=== PATIENT | male | born 1955 | race African-American/Black ===

== ENCOUNTER 2016-08-18 11:44 | Inpatient (IN) ==
[2016-08-18 13:34] LABS: Basophils % 0.2 % (0.0-0.8); Eosinophils % 0.2 % (0.00-10.9); Hematocrit 41.3 VOL% (42.0-52.0); Hemoglobin 13.5 GM/DL (14.0-18.0); Immature Granulocytes % 0.6 %; Immature Granulocytes Absolute 0.11 #; Lymphocytes # 1.8 10*3/uL (1.4-4.0); Lymphocytes % 9.8 % (21.2-54.2); Mean Corpuscular HGB Conc 32.7 GM/DL (32-36); Mean Corpuscular Hemoglobin 28 PG (27-34); Mean Corpuscular Volume 85.3 FL (87-102); Mean Platelet Volume 11.7 FL (9.6-12.0); Monocytes % 10.9 % (1.7-12.7); Neutrophils # 14.1 10*3/uL (1.4-7.4); Neutrophils % 78.3 % (38.7-73.9); Platelet Count 227 T/CUMM (130-400); Red Blood Count 4.84 MC/CUMM (3.8-5.5); Red Cell Distribution Width 14.6 % (9.3-17.3)
[2016-08-18 14:09] LABS: Albumin 3.4 G/DL (3.4-5.0); Bilirubin,Direct 0.2 MG/DL (0.0-0.20); Bilirubin,Indirect 0.8 MG/DL (0.0-1.0); Calcium 9.2 MG/DL (8.5-10.1); Magnesium 2.3 MG/DL (1.8-2.4); Osmolality,Calculated 270.1 MOS/KG (273-304); Potassium 3.9 MMOL/L (3.5-5.1); Total Protein 7.9 G/DL (6.4-8.3)
[2016-08-18] MEDS ORDERED: SODIUM CHLORIDE 0.9% 500 ML IV STA (14:28)
[2016-08-18 14:33] LABS: Apearance,Urine CLEAR (Clear); Bilirubin,Urine Negative (Negative); Blood, Urine Moderate mg/dL (Negative); Glucose,Urine (UA) Negative (Negative); Ketones,Urine 20 mg/dL (Negative); Mucus,Urine Occasional /LPF (Occasional); Nitrite,Urine Negative (Negative); Protein,Urine 30 MG/DL; RBC,Urine 1 /HPF (0-4); Squamous Epithelial Cell,Urine Occasional /HPF (0-10); Urine Color Yellow (Yellow); Urine Specific Gravity 1.019 (1.001-1.035); Urine Urobilinogen < 2.0 EU/DL (0.2-1.0); WBC,Urine 2 /HPF (0-6)
--- NOTE | 2016-08-18 15:53 | CT Report ---
CT abdomen pelvis Indication: Abdominal pain, right side with diarrhea Comparison: None available Technique: Axial CT imaging of the abdomen and pelvis is performed with intravenous contrast. Contrast dose is 100 cc of Omnipaque 350. Findings: Cardiac and lung bases are within normal limits. CT abdomen: The liver spleen pancreas and adrenal glands are normal in size and enhancement. No evidence of focal lesion is demonstrated in these solid organs. Gallbladder is been removed. Kidneys are normal in size and enhancement. No evidence of hydronephrosis or nephrolithiasis is seen. The bowel caliber is normal and no wall thickening or adjacent inflammatory change is seen. No evidence of free fluid or free air is present. There is appendicitis with appendicolith with appendix caliber measures up to 1.26 cm. Large amount of adjacent stranding is present. There is thickening of the cecum with adjacent stranding. There is suggestion of periappendiceal abscess up to 3.[address] pelvis: Small amount of free fluid is seen in the pelvis The pelvic bowel appears within normal limits. Bladder shows no evidence of abnormality. The pelvic organs show no evidence of abnormality Impression: Appendicitis as described above. This CT exam was performed using one or more the following dose reduction techniques: Automated exposure control, adjustment of the MA and/or KV according to patient size, or use of iterative reconstruction technique. PROCEDURE INTERPRETED AT [facility] DEPARTMENT OF RADIOLOGY Final Report Signed by: Dr. Husam Almazan
[2016-08-18] MEDS ORDERED: ONDANSETRON 4 MG/2 ML VIAL IV PRN (16:18)
[2016-08-18] MEDS ORDERED: ACETAMINOPHEN 325 MG TABLET PO PRN (16:18)
--- NOTE | 2016-08-18 16:18 | Emergency Department Note ---
IYuli Mantricia, am scribing for, and in the presence of, Jesus Alebrto Louis M.D. 13:27. IMissy Howard T, M.D., personally performed the services described in this documentation, ascribed by Lois Roldan in my presence, and it is both accurate and complete [id number] . Arrival - Arrival Chief Complaint: Abdominal / Flank Pain Stated Complaint: LOWER STOMACH PAIN ED Nursing Triage Note: C/O HAVING LOWER TO MID ABD.PAIN SINCE FRIDAY., STATES HE HAD TEMP OF 100.8 AT HOME LAST EVENING., + DIARRHEA., DENIES VOMITING OVER THE LAST 24 HOURS., DENIES H AVING URINARY PROBLEMS., Mode of Arrival: Ambulatory Limitations: No Limitations Source: Patient Time Seen by Provider: 08/18/16 13:11 - History of Present Illness HPI Narrative: Pt is a 60 y/o black male arriving to ED with c/o lower abdominal pain that onset 6 days ago. Pt states the pain is accompanied with diarrhea and a fever of 100.8 yesterday. Pt has a PSHx of cholecystectomy and a triple bypass about 6 months ago. He says the pain is more prominent in his RLQ and radiates to his back and sides bilaterally. Pt states he vomited 6 days ago and noticed small amounts of blood in it. Pt's PCP, Dr. Smith, plan to perform a regular routine scope on pt next week. Pt reports no other complaints. Onset (ago): day(s) Consistency: constant Severity: mild Severity scale (1-10): 3 Allergies/Adverse Reactions: Allergies Allergy/AdvReac Type Severity Reaction Status Date / Time codeine Allergy Mild ITCHING, Verified 08/18/16 11:51 hallucination Home Medications: Home Medications Medication Instructions Recorded Confirmed Type Omeprazole 40 mg PO DAILY 09/05/15 08/18/16 History Tramadol HCl [Tramadol Tab] 50 mg PO Q8H PRN 09/05/15 08/18/16 History Furosemide Tab [Lasix Tab] 40 mg PO DAILY #30 tablet 01/08/16 08/18/16 Rx Potassium Chloride Cap/Tab [K Dur] 20 meq PO DAILY #30 tablet 01/08/16 08/18/16 Rx Aspirin Chew Tab 81 mg PO BEDTIME 08/18/16 08/18/16 History Carvedilol [Coreg] 3.125 mg PO BID 08/18/16 08/18/16 History Rosuvastatin [Crestor] 5 mg PO DAILY 08/18/16 08/18/16 History Spironolactone [Aldactone] 25 mg PO DAILY 08/18/16 08/18/16 History Review of System - Review of System 12 point system: reviewed and no additional remarkable complaints except as stated - Review of System Constitutional: Present: fever (100.8 yesterday). Absent: chills, diaphoresis Eyes: Absent: discharge, pain, redness Head/Ears/Nose/Throat: Absent: earache, epistaxis Respiratory: Absent: cough, respiratory distress, wheezing Cardiovascular: Absent: chest pain, palpitations Gastrointestinal: Present: abdominal pain (RLQ), nausea, vomiting Genitourinary male: Absent: urgency, dysuria Musculoskeletal: Present: back pain. Absent: arm pain, leg pain, neck pain Skin: Absent: rash, lesions Neurological: Absent: headache, weakness Psychiatric: Absent: anxiety, depression Medical,Surgical,& Family Hx - Medical History Cardio: History of: Hypertension, Cardiovascular Problems (dr barroso) Neurology: No history of: Seizures HEENT: History of: Eye Problem (READING GLASSES), Dental Problems (LOWER DENTURE ) Gastrointestinal: History of: GERD Musculoskeletal: History of: Musculoskeletal Problems (chronic right hip pain- NEEDS HIP REPLACEMENT) - Surgical History HEENT Surgeries: Surgical HX of: Tonsilectomy & Adenoidectomy Abdominal Surgeries: Surgical HX of: Cholecystectomy Reproductive Surgeries: Surgical HX of;: Breast Surgery (biopsy--cyst removal) - Family History Family History: Reports;: Family Heart Disease (FATHER), Family Hypertension ( MOTHER, SISTER) - Social History Smoking Status: Never smoker Frequency of Alcohol Use: None Type of Drug Use: None Exam Vital Signs: Vital Signs Temperature 98.5 F 08/18/16 11:47 Pulse Rate 88 08/18/16 11:47 Respiratory Rate 18 08/18/16 11:47 Blood Pressure 133/78 08/18/16 11:47 O2 Sat by Pulse Oximetry 99 08/18/16 11:47 - General General appearance: alert, in no apparent distress - Head Head exam: Present: atraumatic, normocephalic, normal inspection - Eye Eye exam: Present: normal appearance, PERRL, EOMI - ENT ENT exam: Present: normal exam, normal oropharynx, mucous membranes moist, TM's normal bilaterally, normal external ear exam - Neck Neck exam: Present: normal inspection, full ROM, trachea midline. Absent: tenderness - Chest Chest inspection: Present: normal inspection, symmetric chest wall rise. Absent : tenderness - Respiratory Respiratory exam: Present: normal lung sounds bilaterally - Cardiovascular Cardiovascular exam: Present: regular rate, normal rhythm, normal heart sounds - Abdominal Exam Abdominal exam: Present: soft, tenderness (RLQ). Absent: distention, guarding, rebound, normal bowel sounds - Extremities Exam Extremities exam: Present: normal inspection, full ROM, normal capillary refill. Absent: tenderness, pedal edema - Back Exam Back exam: Present: normal inspection, full ROM. Absent: tenderness - Neurological Exam Neurological exam: Present: alert, oriented X3, CN II-XII intact, normal gait, reflexes normal - Psychiatric Psychiatric exam: Present: normal affect, normal mood - Skin Skin exam: Present: warm, dry, intact, normal color Course Course Narrative: Medical decision making: His history exam and CT all suggest appendicitis, general surgeon Dr. Bailey notified patient will be admitted for surgery tomorrow Results - Labs CBC & BMP: 08/18/16 13:07 08/18/16 13:07 Lab Results: I have reviewed the patients labs Labs: Laboratory Tests 08/18/16 08/18/16 13:07 13:07 WBC 18.0 H Hgb 13.5 L Hct 41.3 L MCV 85.3 L Neut % (Auto) 78.3 H Lymph % (Auto) 9.8 L Neut # (Auto) 14.1 H Doddridge # (Auto) 2.0 H Sodium 135 L Creatinine 1.60 H Calculated Osmolality 270.1 L ALT 15 L - Diagnostic Findings Procedure: CT Abdomen and Pelvis: report reviewed by me (Appencitis as described above. ) Disposition Clinical Impression: Acute appendicitis Case discussed with: patient Disposition: Still a Patient Condition: Stable Time of Disposition: 16:18
--- NOTE | 2016-08-18 19:55 | General Surg History&Physical ---
Assessment and Plan (1) Acute appendicitis Status: Acute Assessment and plan: Impression: Acute appendicitis Plan: I reviewed the CT images and report. I do not see an obvious abscess. Will review with radiology. We will admit for IV antibiotics. He will remain n.p.o. until we have definitive plan for the appendicitis which could be percutaneous drainage of an appendiceal abscess versus appendectomy. Will consult Dr. cecilio schwartz in the morning Current Visit: Yes History of Present Illness Chief complaint: Abdominal pain History of present illness: Mr. Mendoza is a 60 year old male who presents with right lower quadrant abdominal pain. He states the pain occurred initially on Friday and was associated with nausea and vomiting. He said the nausea and vomiting subsided but he had progressively worsening of his pain. He has not had any fever. With the vomiting on Friday he had a little bit of pink tinged to it. He described it as forceful vomiting. He also apparently has some sort of gum disease and thinks that the bloody tinge might have been from that. Could have been from Prema-Montiel tear but that has completely stopped. He is followed by Dr. Smith and had a three-vessel CABG about 8 months ago. He has not had any chest pain or shortness of breath. He is not on anticoagulants other than aspirin. Home Medications Medication Instructions Recorded Confirmed Type Omeprazole 40 mg PO DAILY 09/05/15 08/18/16 History Tramadol HCl [Tramadol Tab] 50 mg PO Q8H PRN 09/05/15 08/18/16 History Furosemide Tab [Lasix Tab] 40 mg PO DAILY #30 tablet 01/08/16 08/18/16 Rx Potassium Chloride Cap/Tab [K Dur] 20 meq PO DAILY #30 tablet 01/08/16 08/18/16 Rx Aspirin Chew Tab 81 mg PO BEDTIME 08/18/16 08/18/16 History Carvedilol [Coreg] 3.125 mg PO BID 08/18/16 08/18/16 History Rosuvastatin [Crestor] 5 mg PO DAILY 08/18/16 08/18/16 History Spironolactone [Aldactone] 25 mg PO DAILY 08/18/16 08/18/16 History Allergies Allergy/AdvReac Type Severity Reaction Status Date / Time codeine Allergy Mild ITCHING, Verified 08/18/16 11:51 hallucination Medical,Surgical,& Family Hx - Medical History Cardio: History of: Hypertension, Cardiovascular Problems (dr smith) Neurology: No history of: Seizures HEENT: History of: Eye Problem (READING GLASSES), Dental Problems (LOWER DENTURE ) Gastrointestinal: History of: GERD Musculoskeletal: History of: Musculoskeletal Problems (chronic right hip pain- NEEDS HIP REPLACEMENT) - Surgical History Cardiac Surgeries: Sugical HX of: Cardiac Surgery (triple bypass 12/2016) HEENT Surgeries: Surgical HX of: Tonsilectomy & Adenoidectomy Abdominal Surgeries: Surgical HX of: Cholecystectomy Reproductive Surgeries: Surgical HX of;: Breast Surgery (biopsy--cyst removal) - Family History Family History: Reports;: Family Heart Disease (FATHER), Family Hypertension ( MOTHER, SISTER) - Social History Smoking Status: Never smoker Frequency of Alcohol Use: None Type of Drug Use: None Exam - Constitutional Vitals: Period Temp Pulse Resp BP Sys/Davila Pulse Ox Last 24 Hr 97.7 F 88-100 18-20 108-129/70-88 98-99 General appearance: no acute distress - Head Head exam: Present: normocephalic - Neck Neck exam: Present: normal inspection - Cardiovascular Cardiovascular exam: Present: RRR - GI/Abdominal GI/Abdominal exam: Present: soft (Tender in the right lower quadrant. Localized rebound. The other quadrants are nontender. He does not have peritonitis.) - Back Exam Back exam: Present: normal inspection - Neurological Exam Neurological exam: Present: alert, oriented X3 Speech: Present: normal - Skin Skin exam: Present: normal color 12 point system: reviewed and no additional remarkable complaints except as stated Results - Labs CBC & BMP: 08/18/16 13:07 08/18/16 13:07 Lab Results: I have reviewed the past 24 hour labs
[2016-08-18] MEDS: LACTATED RINGERS 1,000 ML IV SCH (22:20)
--- NOTE | 2016-08-19 07:56 | Cardiology Consult Note ---
History of Present Illness - Data of Consult Patient: known to practice within the last 3 years - Consult Narrative History of present illness: Cardiology consult 60-year-old man with one-week history of nausea and right lower quadrant pain. White count is 18.0. CT abdomen shows appendicitis with suggestion of periappendiceal abscess. Cardiac clearance requested. He is status post three-vessel CABG December 28, [address] Lopez with a CHAIDEZ graft to the LAD, vein graft to the obtuse minor branch and vein graft to PDA with normal preop ejection fraction. Echo Doppler done December 23, 2015 showed ejection fraction of 55% with LVH, grade 2 diastolic dysfunction, mildly dilated left atrium, mild MR and normal RV function. The patient a lifetime non -smoker and nondrinker. He is 5 feet 5 inches tall weighs 195 pounds. No history of diabetes. No history of peptic ulcer disease. No history of stroke. History of hypertension. He does have degenerative right hip arthritis and walks with a cane. Since his bypass surgery, he denies chest pain syncope or dizziness. Rhythm is regular with no gallop on exam. Lungs are clear. EKG has been ordered by me. Lab data includes a white count of 18.0 hemoglobin 13.5 hematocrit 41.3 Sodium 135 potassium 3.9 chloride 99 CO2 28 BUN 14 creatinine 1.60 Blood pressure 136/80 pulse is 86 and regular respirations 18 bilateral arcus. Poor oral hygiene. Neck veins are flat. No carotid bruit. Clear lungs. Regular rhythm. I cannot hear any murmur or gallop. Abdomen is obese and he is tender in the right lower quadrant femoral pulses 2+ without bruits of pulses 2+ symmetric no leg edema Impression Acute appendicitis. CT suggests periappendiceal abscess Status post three-vessel CABG December 28, 2015 with CHAIDEZ graft to LAD, vein graft to OM branch and vein graft to PDA with normal preop EF No exertional angina, no heart failure and no leg edema. Lungs are clear and no gallop on exam Hypertension Lifetime non-smoker and nondrinker 5 feet 5 inches tall 195 pounds Hyperlipidemia Degenerative right hip arthritis now walking with a cane Plan EKG pending Patient has stable hemodynamics post-bypass and is pain-free. He is cleared for appendectomy. Patient is anxious to proceed in that manner. We will follow CC: Juan Antonio Boland MD - Home Medications and Allergies Home Medications: Home Medications Medication Instructions Recorded Confirmed Type Omeprazole 40 mg PO DAILY 09/05/15 08/18/16 History Tramadol HCl [Tramadol Tab] 50 mg PO Q8H PRN 09/05/15 08/18/16 History Furosemide Tab [Lasix Tab] 40 mg PO DAILY #30 tablet 01/08/16 08/18/16 Rx Potassium Chloride Cap/Tab [K Dur] 20 meq PO DAILY #30 tablet 01/08/16 08/18/16 Rx Aspirin Chew Tab 81 mg PO BEDTIME 08/18/16 08/18/16 History Carvedilol [Coreg] 3.125 mg PO BID 08/18/16 08/18/16 History Rosuvastatin [Crestor] 5 mg PO DAILY 08/18/16 08/18/16 History Spironolactone [Aldactone] 25 mg PO DAILY 08/18/16 08/18/16 History Allergies/Adverse Reactions: Allergies Allergy/AdvReac Type Severity Reaction Status Date / Time codeine Allergy Mild ITCHING, Verified 08/18/16 11:51 hallucination Medical,Surgical,& Family Hx - Medical History Cardio: History of: Hypertension, Cardiovascular Problems (dr barroso) Neurology: No history of: Seizures HEENT: History of: Eye Problem (READING GLASSES), Dental Problems (LOWER DENTURE ) Gastrointestinal: History of: GERD Musculoskeletal: History of: Musculoskeletal Problems (chronic right hip pain- NEEDS HIP REPLACEMENT) - Surgical History Cardiac Surgeries: Sugical HX of: Cardiac Surgery (triple bypass 12/2016) HEENT Surgeries: Surgical HX of: Tonsilectomy & Adenoidectomy Abdominal Surgeries: Surgical HX of: Cholecystectomy Reproductive Surgeries: Surgical HX of;: Breast Surgery (biopsy--cyst removal) - Family History Family History: Reports;: Family Heart Disease (FATHER), Family Hypertension ( MOTHER, SISTER) - Social History Smoking Status: Never smoker Frequency of Alcohol Use: None Type of Drug Use: None Physical Examination Vital Signs Temp Pulse Resp BP Pulse Ox 98.5 F 88 18 133/78 99 08/18/16 11:47 08/18/16 11:47 08/18/16 11:47 08/18/16 11:47 08/18/16 11:47 Result/EKG - Labs CBC & BMP: 08/18/16 13:07 08/18/16 13:07
--- NOTE | 2016-08-19 08:09 | EKG Report ---
Stationary ECG Study [facility] Test Date: 08/19/2016 8:09:56 AM Pat Name: CLAUDIA DEJESUS Department: Room: 336 Gender: M Panel [employer] Sealer: : 1955 Requested by: Laury Arvizu Order Number: [id number] Reading MD: LAURY ARVIZU Intervals [place] Rate: 77 P: 61 TN: 184 QRS: -65 QRSD: 152 T: 31 QT: 417 QTc: 448 Interpretive Statements SINUS RHYTHM RIGHT BUNDLE BRANCH BLOCK LEFT ANTERIOR FASCICULAR BLOCK Electronically Signed On 08-19-16 17:01:15 CDT by LAURY ARVZIU [email or web address]
[2016-08-19] MEDS: PANTOPRAZOLE 40 MG TABLET PO SCH (08:47)
[2016-08-19] MEDS: LACTATED RINGERS 1,000 ML IV SCH ×2 (09:01→13:37)
[2016-08-19 09:21] LABS: Basophils # 0.1 10*3/uL (0.0-0.2); Basophils % 0.4 % (0.0-0.8); Eosinophils # 0.4 10*3/uL (0.0-0.87); Eosinophils % 2.8 % (0.00-10.9); Hematocrit 38.6 VOL% (42.0-52.0); Hemoglobin 12.4 GM/DL (14.0-18.0); Immature Granulocytes % 0.9 %; Immature Granulocytes Absolute 0.12 #; Lymphocytes # 1.6 10*3/uL (1.4-4.0); Lymphocytes % 11.4 % (21.2-54.2); Mean Corpuscular HGB Conc 32.1 GM/DL (32-36); Mean Corpuscular Hemoglobin 27 PG (27-34); Mean Platelet Volume 11.2 FL (9.6-12.0); Monocytes # 1.5 10*3/uL (0.11-0.8); Monocytes % 10.9 % (1.7-12.7); Neutrophils # 10.1 10*3/uL (1.4-7.4); Neutrophils % 73.6 % (38.7-73.9); Platelet Count 223 T/CUMM (130-400); Red Blood Count 4.54 MC/CUMM (3.8-5.5); Red Cell Distribution Width 14.6 % (9.3-17.3); White Blood Count 13.7 T/CUMM (4-12)
[2016-08-19] MEDS: metroNIDAZOLE INJ 500 MG in PREMIX 1 EACH IV SCH ×2 (09:47→18:57)
[2016-08-19 09:55] LABS: Eosinophils 2 % (0-10); Lymphocytes 8 % (20-55); Segmented Neutrophils 80 % (50-85); Total Cells Counted 100
[2016-08-19 09:56] LABS: Hypochromasia 1+; Platelet Estimate Normal
[2016-08-19] MEDS: SPIRONOLACTONE 25 MG TABLET PO SCH (11:43)
[2016-08-19] MEDS: POTASSIUM CHLORIDE 20 MEQ TABLET PO SCH (11:44)
[2016-08-19] MEDS: FUROSEMIDE 40 MG TABLET PO SCH (11:44)
[2016-08-19] MEDS: CARVEDILOL 3.125 MG TABLET PO SCH ×2 (11:44→21:37)
--- NOTE | 2016-08-19 14:39 | General Surgery Progress Note ---
Assessment and Plan (1) Acute appendicitis Status: Acute Assessment and plan: The patient with apparent phlegmon formation. Considering the inflammation in the surgical area, we have recommended proceeding with IV antibiotics as he is clinically improving with delayed appendectomy. Considering the increased perioperative risks with proceeding illnesses, this seems to be the safer option. This was discussed with the patient. We will allow him to advance his diet as tolerated today and repeat labs in the morning. If he continues to improve he can be discharged on antibiotics and follow-up in the clinic to plan appendectomy at a later date. All questions were answered. Patient expressed understanding and agreement with the current plan. Current Visit: Yes (2) Status post coronary artery bypass graft Status: Acute Assessment and plan: Cardiology consultation appreciated. Current Visit: No (3) Prophylactic measure Status: Acute Assessment and plan: 1. DVT ppx: Mechanical prophylaxis in place. We will hold on chemical prophylaxis with a questionable hematemesis encourage mobilization. 2. GI prophylaxis PPI daily Current Visit: Yes Subjective Patient reports: Present: no new complaints, still having pain, pain is less, afebrile Exam - Constitutional Vitals: Period Temp Pulse Resp BP Sys/Davila Pulse Ox Last 24 Hr 96.9 F-97.7 F 78-100 18-20 98-131/57-88 97-100 General appearance: no acute distress - Eye Eye exam: Absent: conjunctival injection, scleral icterus - Neck Neck exam: Present: trachea midline - Respiratory Respiratory exam: Present: clear to auscultation bilaterally - Cardiovascular Cardiovascular exam: Present: RRR - GI/Abdominal GI/Abdominal exam: Present: hypoactive bowel sounds, tenderness (RLQ), soft. Absent: distended, firm - Extremities Exam Extremities exam: Absent: calf tenderness, edema - Neurological Exam Neurological exam: Present: alert, oriented X3 Speech: Present: normal - Skin Skin exam: Present: normal color, warm Results - Labs CBC & BMP: 08/19/16 08:48 08/18/16 13:07 Quality Measures - VTE Contraindication to Pharmacological VTE Prophylaxis: High Risk of Bleeding
[2016-08-19] MEDS: ASPIRIN CHEW 81 MG TABLET PO SCH (21:37)
[2016-08-20] MEDS: LACTATED RINGERS 1,000 ML IV SCH ×2 (00:03→19:12)
[2016-08-20] MEDS: metroNIDAZOLE INJ 500 MG in PREMIX 1 EACH IV SCH ×3 (01:34→18:39)
[2016-08-20 03:57] LABS: Basophils % 0.5 % (0.0-0.8); Eosinophils # 0.6 10*3/uL (0.0-0.87); Eosinophils % 7.2 % (0.00-10.9); Hematocrit 35.5 VOL% (42.0-52.0); Hemoglobin 11.8 GM/DL (14.0-18.0); Immature Granulocytes % 0.6 %; Immature Granulocytes Absolute 0.05 #; Lymphocytes % 24.5 % (21.2-54.2); Mean Corpuscular HGB Conc 33.2 GM/DL (32-36); Mean Corpuscular Hemoglobin 28 PG (27-34); Mean Corpuscular Volume 85.3 FL (87-102); Mean Platelet Volume 11.4 FL (9.6-12.0); Monocytes % 11.8 % (1.7-12.7); Neutrophils # 4.5 10*3/uL (1.4-7.4); Neutrophils % 55.4 % (38.7-73.9); Platelet Count 239 T/CUMM (130-400); Red Blood Count 4.16 MC/CUMM (3.8-5.5); Red Cell Distribution Width 14.5 % (9.3-17.3); White Blood Count 8.1 T/CUMM (4-12)
[2016-08-20 04:25] LABS: Calcium 8.4 MG/DL (8.5-10.1); Osmolality,Calculated 282.3 MOS/KG (273-304)
[2016-08-20 04:30] LABS: Platelet Estimate Normal
[2016-08-20] MEDS: POTASSIUM CHLORIDE 20 MEQ TABLET PO SCH (08:34)
[2016-08-20] MEDS: CARVEDILOL 3.125 MG TABLET PO SCH ×2 (08:34→20:27)
[2016-08-20] MEDS: ROSUVASTATIN 10 MG TABLET PO SCH (08:34)
[2016-08-20] MEDS: SPIRONOLACTONE 25 MG TABLET PO SCH (08:34)
[2016-08-20] MEDS: PANTOPRAZOLE 40 MG TABLET PO SCH (08:35)
[2016-08-20] MEDS: FUROSEMIDE 40 MG TABLET PO SCH (08:35)
--- NOTE | 2016-08-20 09:00 | Cardiology Progress Note ---
Drew Beck April, RN, am scribing for, and in the presence of, Neal Arvizu MD 09:00. Assessment and Plan (1) Acute appendicitis Status: Acute Current Visit: Yes (2) CAD (coronary artery disease) Status: Chronic Current Visit: Yes Qualifiers: Coronary Disease-Associated Artery/Lesion type: bypass graft [place] vs. transplanted heart: [place] heart Associated angina: without angina Qualified Code(s): I25.810 - Atherosclerosis of coronary artery bypass graft(s) without angina pectoris (3) Status post coronary artery bypass graft Status: Chronic Current Visit: Yes Cardiology - PN: Subj Interval history: Cardiology note Beef Tagger: Dr. Smith Mr. Mendoza is seen sitting up in chair eating breakfast. He denies any chest pain, shortness of breath, palpitations, or dizziness. He reports he has experienced some right sided abdominal pain this morning. He reports this is a slight pain, nothing like when he was admitted. He says he is tolerating food well, denies nausea and vomiting. EKG yesterday showed sinus rhythm with right bundle branch block, heart rate of 77 O2 sats have been in the mid to upper 90s Blood pressure 127/74 Lab data: White count 8.1 hemoglobin 11.8 hematocrit 35.5 Sodium 141 potassium 4.0 chloride 106 CO2 27 BUN 13 creatinine 1.30 Impression: Acute appendicitis. CT suggests periappendiceal abscess Status post three-vessel CABG December 2015 with CHAIDEZ graft LAD, SVG to OM branch, and SVG to PDA with normal preop EF Hyperlipidemia Degenerative right hip arthritis, now walking with a cane Cardiology addendum. Patient examined and chart reviewed. Discussed with nurse Ramya Russell RN. No temperature. He is eating well without difficulty No nausea No shortness of breath Lungs are clear no gallop. Plan is for IV antibiotics to cool off the surgical area before proceeding with appendectomy Exam (Progress Note) - Constitutional Vitals: Period Temp Pulse Resp BP Sys/Davila Pulse Ox Last 24 Hr 96.7 F-99.3 F 64-83 16-20 89-127/52-76 95-98 General appearance: no acute distress, over weight - Head Head exam: Absent: abrasion, hematoma - Eye Eye exam: Absent: periorbital swelling, laceration to eyelids - Respiratory Respiratory exam: Present: clear to auscultation bilaterally. Absent: accessory muscle use, chest wall tenderness - Cardiovascular Cardiovascular exam: Present: regular rate and rhythm. Absent: diastolic murmur , systolic murmur - GI/Abdominal GI/Abdominal exam: Present: normal bowel sounds, tenderness, soft. Absent: distended - Extremities Exam Extremities exam: Absent: edema - Neurological Exam Neurological exam: Present: alert, oriented X3 - Psychiatric Psychiatric exam: Present: normal affect, normal mood - Skin Skin exam: Present: warm, dry Result/EKG - Labs CBC & BMP: 08/20/16 03:45 08/20/16 03:45 Lab Results: I have reviewed the past 24 hour labs Labs: Laboratory Results - last 24 hr 08/19/16 08/20/16 08/20/16 08:48 03:45 03:45 WBC 13.7 H 8.1 D RBC 4.54 4.16 Hgb 12.4 L 11.8 L Hct 38.6 L 35.5 L MCV 85.0 L 85.3 L MCH 27 28 MCHC 32.1 33.2 RDW 14.6 14.5 Plt Count 223 239 MPV 11.2 11.4 Neut % (Auto) 73.6 55.4 Lymph % (Auto) 11.4 L 24.5 Nicholas % (Auto) 10.9 11.8 Eos % (Auto) 2.8 7.2 Baso % (Auto) 0.4 0.5 Neut # (Auto) 10.1 H 4.5 Lymph # (Auto) 1.6 2.0 Nicholas # (Auto) 1.5 H 1.0 H Eos # (Auto) 0.4 0.6 Baso # (Auto) 0.1 0.0 Total Counted 100 Immature Gran % 0.9 0.6 Nucleated RBC % 0.0 0.0 Immature Gran # 0.12 0.05 Segmented Neutrophils 80 Lymphocytes 8 L Monocytes 10 Eosinophils 2 Nucleated RBCs # 0.00 0.00 Platelet Estimate Normal Normal Hypochromasia 1+ Anisocytosis Sodium 141 Potassium 4.0 Chloride 106 Carbon Dioxide 27 Anion Gap 12.0 BUN 13 Creatinine 1.30 GFR Calculation 77 BUN/Creatinine Ratio 10.00 Glucose 130 H Calculated Osmolality 282.3 Calcium 8.4 L Carcinoembryonic Ag 08/20/16 03:45 WBC RBC Hgb Hct MCV MCH MCHC RDW Plt Count MPV Neut % (Auto) Lymph % (Auto) Nicholas % (Auto) Eos % (Auto) Baso % (Auto) Neut # (Auto) Lymph # (Auto) Nicholas # (Auto) Eos # (Auto) Baso # (Auto) Total Counted Immature Gran % Nucleated RBC % Immature Gran # Segmented Neutrophils Lymphocytes Monocytes Eosinophils Nucleated RBCs # Platelet Estimate Hypochromasia Anisocytosis Sodium Potassium Chloride Carbon Dioxide Anion Gap BUN Creatinine GFR Calculation BUN/Creatinine Ratio Glucose Calculated Osmolality Calcium Carcinoembryonic Ag < 0.5 - EKG EKG results: interpreted by me EKG shows: sinus rhythm Quality Measures - VTE Contraindication to Pharmacological VTE Prophylaxis: High Risk of Bleeding Nolebrto Beck Thomas, MD, personally performed the services described in this documentation, ascribed by Ramya Russell RN in my presence, and it is both accurate and complete [id number] .
--- NOTE | 2016-08-20 10:54 | Physician Query Form ---
CLICK EDIT DOCUMENT TO SELECT QUERY ANSWER --> OK --> SIGN Roma Munoz RN Clinical Wire Bender Hand W) [phone] (f) [phone] [email or web address] PROVIDERS: Make your selection(s) from the choices in EACH section by typing an "x" and enter comments in the comment section. Please use your independent medical judgment in providing your response. This request does not imply that any particular answer is desired or expected. CLINICAL INDICATORS: (Providers should not edit this section) Based on documentation of serum creatinine from 1.60 to 1.30 . GFR form 61 to 77. Treated with LR infusion. monitored with repeat lab checks. Clarify which of the following most accurately represents the patient's renal status: ( ) Acute kidney injury (non-traumatic) ( ) Acute renal failure ( ) Acute renal failure with underlying Chronic Kidney Disease (CKD) - please provide stage below ( ) Acute renal failure with pathological renal lesion ( ) Acute renal failure with necrosis ( ) tubular ( ) medullary ( ) cortical ( ) CKD - please provide stage below ( ) End Stage Renal Disease ( ) Acute interstitial nephritis ( ) Hepatorenal syndrome ( ) Other, please specify: ( ) Clinically unable to determine Chronic Kidney Disease Stages Source: National Kidney Disease Foundation ( ) Stage I (eGFR > or = 90) ( ) Stage II (eGFR 60 - 89) ( ) Stage III (eGFR 30 - 59) ( ) Stage IV (eGFR 15 - 29) ( ) Stage V (eGFR < 15 or dialysis) COMMENTS: PLEASE ALSO DOCUMENT RESPONSE IN PROGRESS NOTES AND/OR DISCHARGE SUMMARY Use of terms such as suspected, likely, or probable (associated with a specific diagnosis that is being evaluated, monitored, or treated as if it exists) are acceptable and can be restated in the discharge summary if not ruled out. MTDD
--- NOTE | 2016-08-20 11:14 | General Surgery Progress Note ---
Assessment and Plan (1) Acute appendicitis Status: Acute Assessment and plan: Leukocytosis resolved. Pt symptoms clinically improving. He will likely require continued monitoring and IV abx with planned delayed appendectomy. Possible d/c in next 1-2 days. Current Visit: Yes (2) Status post coronary artery bypass graft Status: Chronic Assessment and plan: Cardiology consultation appreciated. Current Visit: Yes (3) Prophylactic measure Status: Acute Assessment and plan: 1. DVT ppx: Mechanical prophylaxis in place. We will hold on chemical prophylaxis with a questionable hematemesis encourage mobilization. 2. GI prophylaxis PPI daily. 3. Dispo: likely next 24-48 hrs if stays on improving clinical course. Current Visit: Yes Subjective Patient reports: Present: feels better, still having pain, tolerating a regular diet, voiding w/o difficulty, bowel movement. Absent: blood in stool, nausea, vomiting, afebrile Exam - Constitutional Vitals: Period Temp Pulse Resp BP Sys/Davila Pulse Ox Last 24 Hr 96.7 F-99.3 F 64-83 16-20 89-127/52-74 95-98 General appearance: no acute distress - Head Head exam: Present: normal inspection, normocephalic - Eye Eye exam: Absent: conjunctival injection, scleral icterus - Respiratory Respiratory exam: Present: clear to auscultation bilaterally - Cardiovascular Cardiovascular exam: Present: RRR - GI/Abdominal GI/Abdominal exam: Present: normal bowel sounds, tenderness (decreased RLQ tenderness; no guarding, rebound or rigidity), soft - Extremities Exam Extremities exam: Absent: calf tenderness, edema - Neurological Exam Neurological exam: Present: alert, oriented X3 - Skin Skin exam: Present: normal color, warm Results - Labs CBC & BMP: 08/20/16 03:45 08/20/16 03:45 Quality Measures - VTE Contraindication to Pharmacological VTE Prophylaxis: High Risk of Bleeding
[2016-08-20] MEDS: ASPIRIN CHEW 81 MG TABLET PO SCH (20:27)
[2016-08-21] MEDS: metroNIDAZOLE INJ 500 MG in PREMIX 1 EACH IV SCH ×2 (01:20→08:41)
[2016-08-21] MEDS: LACTATED RINGERS 1,000 ML IV SCH ×2 (06:18)
[2016-08-21] MEDS: SPIRONOLACTONE 25 MG TABLET PO SCH (08:22)
[2016-08-21] MEDS: PANTOPRAZOLE 40 MG TABLET PO SCH (08:22)
[2016-08-21] MEDS: FUROSEMIDE 40 MG TABLET PO SCH (08:22)
[2016-08-21] MEDS: ROSUVASTATIN 10 MG TABLET PO SCH (08:22)
[2016-08-21] MEDS: CARVEDILOL 3.125 MG TABLET PO SCH (08:22)
[2016-08-21] MEDS: POTASSIUM CHLORIDE 20 MEQ TABLET PO SCH (08:22)
--- NOTE | 2016-08-21 08:50 | Physician Query Form ---
CLICK EDIT DOCUMENT TO SELECT QUERY ANSWER --> OK --> SIGN Roma Munoz RN Clinical Cutter Grind Tool Technician W) [phone] (f) [phone] [email or web address] PROVIDERS: Make your selection(s) from the choices in EACH section by typing an "x" and enter comments in the comment section. Please use your independent medical judgment in providing your response. This request does not imply that any particular answer is desired or expected. CLINICAL INDICATORS: (Providers should not edit this section) Based on documentation of serum creatinine from 1.60 to 1.30 . GFR form 61 to 77. Treated with LR infusion. monitored with repeat lab checks. Clarify which of the following most accurately represents the patient's renal status: ( ) Acute kidney injury (non-traumatic) ( ) Acute renal failure ( ) Acute renal failure with underlying Chronic Kidney Disease (CKD) - please provide stage below ( ) Acute renal failure with pathological renal lesion ( ) Acute renal failure with necrosis ( ) tubular ( ) medullary ( ) cortical ( ) CKD - please provide stage below ( ) End Stage Renal Disease ( ) Acute interstitial nephritis ( ) Hepatorenal syndrome ( ) Other, please specify: ( x) Clinically unable to determine Chronic Kidney Disease Stages Source: National Kidney Disease Foundation ( ) Stage I (eGFR > or = 90) ( ) Stage II (eGFR 60 - 89) ( ) Stage III (eGFR 30 - 59) ( ) Stage IV (eGFR 15 - 29) ( ) Stage V (eGFR < 15 or dialysis) COMMENTS: PLEASE ALSO DOCUMENT RESPONSE IN PROGRESS NOTES AND/OR DISCHARGE SUMMARY Use of terms such as suspected, likely, or probable (associated with a specific diagnosis that is being evaluated, monitored, or treated as if it exists) are acceptable and can be restated in the discharge summary if not ruled out. MTDD
--- NOTE | 2016-08-21 10:32 | Discharge Summary ---
Hospital Course - Hospital Course Hospital Course: Patient was admitted with acute appendicitis with phlegmon. Considering the surrounding inflammation, IV antibiotics were recommended with continued oral antibiotics with interval appendectomy was recommended. Patient responded well to antibiotics. The time of discharge, he was tolerating activity and oral intake without difficulty. He was also voiding and passing his bowels without difficulty. He was discharged home in good condition with oral antibiotics as well as a [address] Boland and plan to follow-up with them interval appendectomy. He was educated to notify Dr. Bailey's office if with any increase in pain, nausea, vomiting or febrile illness. Diagnosis - Discharge Diagnosis (1) Acute appendicitis Status: Acute (2) Status post coronary artery bypass graft Status: Chronic (3) Prophylactic measure Status: Acute Discharge Plan - Discharge Data Disposition: Disch To Home/Self Care Condition at Discharge: Stable Discharge Diet: advance to your usual diet Activity: other (Avoid rigorous activity until f/u Dr. Boland.) Hygiene: no restrictions Driving: other (No driving while taking narcotics) Contact your physician if you experience:: fever over 101, Difficulty voiding, Redness or swelling, Nausea/Vomiting, Shortness of breath, Bleeding, pain uncontrolled by pain medications (or increased pain in abdomen) - Discharge Medications New Ciprofloxacin Tab [Cipro Tab] 500 mg PO BID #28 tablet HYDROcodone/ACETAMIN 7.5-325 [Wilmer 7.5-325] 1 tablet PO Q4H PRN #20 tablet PRN Reason: Pain Moderate To Severe (4-10) metroNIDAZOLE TAB [Flagyl Cap/Tab] 500 mg PO TID #42 tablet Continue Tramadol HCl [Tramadol Tab] 50 mg PO Q8H PRN PRN Reason: Pain Omeprazole 40 mg PO DAILY Furosemide Tab [Lasix Tab] 40 mg PO DAILY #30 tablet Potassium Chloride Cap/Tab [K Dur] 20 meq PO DAILY #30 tablet Aspirin Chew Tab 81 mg PO BEDTIME Spironolactone [Aldactone] 25 mg PO DAILY Carvedilol [Coreg] 3.125 mg PO BID Rosuvastatin [Crestor] 5 mg PO DAILY - Follow Up or Referral Follow Up: Juan Antonio Boland MD [Physician] - 2 Weeks - Forms/Instructions Instructions: Appendicitis (DC) Exam - Constitutional Vitals: Period Temp Pulse Resp BP Sys/Davila Pulse Ox Last 24 Hr 97.5 F-98.1 F 66-72 12-18 96-122/53-72 96-98 General appearance: no acute distress - Head Head exam: Present: normal inspection, normocephalic, atraumatic - Eye Eye exam: Absent: conjunctival injection, scleral icterus - Respiratory Respiratory exam: Present: clear to auscultation bilaterally - Cardiovascular Cardiovascular exam: Present: regular rate and rhythm - GI/Abdominal GI/Abdominal exam: Present: normal bowel sounds, tenderness (minimal RLQ - no palpable mass), soft. Absent: distended, rebound - Extremities Exam Extremities exam: Absent: calf tenderness, edema - Neurological Exam Neurological exam: Present: alert, oriented X3 - Psychiatric Psychiatric exam: Present: normal affect, normal mood - Skin Skin exam: Present: normal color, warm Discharge Results - Imaging and Cardiology Procedure: CT Abdomen and Pelvis: image reviewed by me, report reviewed by me DS: Provider Date of admission: 08/18/16 16:18 Primary care physician: . No PCP Attending physician on admission: Juan Antonio Boland MD Consults: 08/19/16 00:35 Consult to Physician [CONS] Routine Comment: Consulting Provider: Ja Smith Consulting Provider Notified: Yes When should Consulting Provider be notified: In am Person Notified: donna arcos Date Notified: 08/19/16 Time Notified: 07:56 Discharging clinician: Danyelle Wong PA-C
[2016-08-21 11:13] VITALS: BP 100/84
== END 2016-08-21 13:09 | disposition home or self-care (01) | DRG 254 ==
LOC: N.ED 11:44 → N.EDINP 16:18 → N.3E 19:12
PROVIDERS: ADMIT Surgery; ATTEND Surgery

== ENCOUNTER 2019-08-29 09:22 | Inpatient (IN) ==
[2019-08-29 10:23] LABS: Albumin 4.2 G/DL (3.4-5.0); Bilirubin,Total 0.9 MG/DL (0.2-1.0); Calcium 9.5 MG/DL (8.5-10.1); Osmolality,Calculated 264.5 MOS/KG (273-304); Total Protein 8.9 G/DL (6.4-8.3)
[2019-08-29 10:30] LABS: Basophils % 0.1 % (0.0-0.8); Eosinophils % 0.4 % (0.00-10.9); Hematocrit 38.5 VOL% (42.0-52.0); Hemoglobin 11.6 GM/DL (14.0-18.0); Immature Granulocytes % 0.4 %; Immature Granulocytes Absolute 0.03 #; Lymphocytes # 1.1 10*3/uL (1.4-4.0); Lymphocytes % 14.2 % (21.2-54.2); Mean Corpuscular HGB Conc 30.1 GM/DL (32-36); Mean Corpuscular Volume 72.9 FL (87-102); Mean Platelet Volume 11.8 FL (9.6-12.0); Monocytes % 6.1 % (1.7-12.7); Neutrophils % 78.8 % (38.7-73.9); Platelet Count 265 T/CUMM (130-400); Red Blood Count 5.28 MC/CUMM (3.8-5.5); Red Cell Distribution Width 17.9 % (9.3-17.3); White Blood Count 7.7 T/CUMM (4-12)
[2019-08-29 11:13] LABS: Apearance,Urine CLEAR (Clear); Bilirubin,Urine Negative (Negative); Blood, Urine Negative (Negative); Glucose,Urine (UA) Negative (Negative); Ketones,Urine 20 mg/dL (Negative); Mucus,Urine Few /LPF (Occasional); Nitrite,Urine Negative (Negative); Protein,Urine 100 MG/DL; RBC,Urine 2 /HPF (0-4); Squamous Epithelial Cell,Urine Occasional /HPF (0-10); Urine Color Yellow (Yellow); Urine Specific Gravity 1.026 (1.001-1.035); WBC,Urine 2 /HPF (0-6)
[2019-08-29] MEDS ORDERED: HYDROmorphone 2 MG/1 ML VIAL IV STA (11:54)
[2019-08-29] MEDS ORDERED: ONDANSETRON 4 MG/2 ML VIAL IV STA (11:54)
[2019-08-29] MEDS ORDERED: ONDANSETRON 4 MG/2 ML VIAL IV PRN (12:35)
[2019-08-29] MEDS ORDERED: MORPHINE 4 MG/1 ML VIAL IV PRN (12:35)
[2019-08-29 13:09] LABS: Hypochromasia 2+; Microcytosis 2+; Poikilocytosis 1+
[2019-08-29 13:10] LABS: Platelet Estimate Normal
[2019-08-29] MEDS: DEXTROSE 5% NACL 0.45% 1,000 ML IV SCH (17:42)
[2019-08-30] MEDS: DEXTROSE 5% NACL 0.45% 1,000 ML IV SCH ×3 (00:55→12:09)
[2019-08-30 07:25] LABS: Calcium 8.6 MG/DL (8.5-10.1); Osmolality,Calculated 268.2 MOS/KG (273-304)
[2019-08-30 07:40] LABS: Basophils % 0.6 % (0.0-0.8); Eosinophils # 0.3 10*3/uL (0.0-0.87); Hematocrit 34.8 VOL% (42.0-52.0); Immature Granulocytes % 0.3 %; Immature Granulocytes Absolute 0.02 #; Lymphocytes # 2.5 10*3/uL (1.4-4.0); Lymphocytes % 35.9 % (21.2-54.2); Mean Corpuscular HGB Conc 29.3 GM/DL (32-36); Mean Corpuscular Volume 74.2 FL (87-102); Mean Platelet Volume 11.8 FL (9.6-12.0); Monocytes % 11.9 % (1.7-12.7); Neutrophils % 47.3 % (38.7-73.9); Platelet Count 222 T/CUMM (130-400); Red Blood Count 4.69 MC/CUMM (3.8-5.5); Red Cell Distribution Width 17.7 % (9.3-17.3); White Blood Count 7.1 T/CUMM (4-12)
[2019-08-30 07:42] LABS: Hemoglobin 10.2 GM/DL (14.0-18.0)
[2019-08-30 08:05] LABS: Eosinophils 7 % (0-10); Hypochromasia 1+; Lymphocytes 35 % (20-55); Ovalocytes Slight; Platelet Estimate Adequate; Segmented Neutrophils 46 % (50-85); Total Cells Counted 100
[2019-08-30 08:06] LABS: Microcytosis Slight
[2019-08-30] MEDS ORDERED: POLYETHYLENE GLYCOL 3350/ELECTROLYTES 4,000 ML BOTTLE PO ONE (12:00)
[2019-08-31 08:08] LABS: Albumin 4.2 G/DL (3.4-5.0); Bilirubin,Total 0.8 MG/DL (0.2-1.0); Calcium 9.6 MG/DL (8.5-10.1); Osmolality,Calculated 261.5 MOS/KG (273-304); Total Protein 9.2 G/DL (6.4-8.3)
[2019-08-31 08:44] LABS: Basophils # 0.1 10*3/uL (0.0-0.2); Basophils % 0.8 % (0.0-0.8); Eosinophils # 0.4 10*3/uL (0.0-0.87); Eosinophils % 5.7 % (0.00-10.9); Hematocrit 42.7 VOL% (42.0-52.0); Immature Granulocytes % 0.3 %; Immature Granulocytes Absolute 0.02 #; Mean Corpuscular Volume 74.8 FL (87-102); Mean Platelet Volume 11.6 FL (9.6-12.0); Monocytes % 8.4 % (1.7-12.7); Neutrophils % 53.8 % (38.7-73.9); Platelet Count 254 T/CUMM (130-400); Red Cell Distribution Width 18.7 % (9.3-17.3); White Blood Count 6.3 T/CUMM (4-12)
[2019-08-31 08:45] LABS: Hemoglobin 12.4 GM/DL (14.0-18.0); Red Blood Count 5.71 MC/CUMM (3.8-5.5)
[2019-08-31] MEDS: DEXTROSE 5% NACL 0.45% 1,000 ML IV SCH (17:07)
[2019-09-01] MEDS: DEXTROSE 5% NACL 0.45% 1,000 ML IV SCH ×5 (01:20→18:46)
[2019-09-01] MEDS: LACTATED RINGERS 1,000 ML IV SCH (12:34)
[2019-09-01] MEDS ORDERED: LIDOCAINE 2% 5 ML VIAL ONE (13:55)
[2019-09-01] MEDS ORDERED: propofoL 200 MG/20 ML VIAL IV ONE (13:55)
[2019-09-02] MEDS: DEXTROSE 5% NACL 0.45% 1,000 ML IV SCH ×2 (03:03→08:10)
[2019-09-02] MEDS: LACTATED RINGERS 1,000 ML IV SCH (08:10)
[2019-09-02 11:35] VITALS: BP 147/67
== END 2019-09-02 13:40 | disposition home or self-care (01) | DRG 390 ==
LOC: N.ED 09:22 → N.EDINP 12:35 → N.3E 15:48
PROVIDERS: ADMIT Student in an Organized Health Care Education/Training Program; ATTEND Student in an Organized Health Care Education/Training Program

== ENCOUNTER 2019-09-16 05:29 | Inpatient (IN) ==
[2019-09-10 12:17] LABS: Calcium 9.1 MG/DL (8.5-10.1); Osmolality,Calculated 269.1 MOS/KG (273-304)
[2019-09-16] MEDS ORDERED: CLINDAMYCIN INJ 900 MG in PREMIX 1 EACH IV ONE (06:30)
[2019-09-16] MEDS ORDERED: DIAZEPAM 5 MG TABLET PO ONE (07:41)
[2019-09-16] MEDS ORDERED: FAMOTIDINE 20 MG TABLET PO ONE (07:41)
[2019-09-16] MEDS: LACTATED RINGERS 1,000 ML IV SCH ×2 (08:24→11:20)
[2019-09-16] MEDS ORDERED: CLINDAMYCIN INJ 50 ML IV ONE (08:41)
[2019-09-16] MEDS ORDERED: FAMOTIDINE 20 MG TABLET ONE (08:41)
[2019-09-16] MEDS ORDERED: DIAZEPAM 5 MG TABLET ONE (08:41)
[2019-09-16] MEDS ORDERED: DEXAMETHASONE 4 MG/1 ML VIAL ONE ×2 (10:19→12:55)
[2019-09-16] MEDS ORDERED: BUPIVACAINE MPF 0.25% 30 ML VIAL ONE (10:19)
[2019-09-16] MEDS ORDERED: ROPIVACAINE 0.5% 30 ML VIAL ONE (10:21)
[2019-09-16] MEDS ORDERED: SUGAMMADEX 200 MG/2 ML VIAL IV ONE (12:08)
[2019-09-16] MEDS ORDERED: ACETAMINOPHEN 325 MG TABLET PO PRN (12:44)
[2019-09-16] MEDS ORDERED: HYDROmorphone 2 MG/1 ML VIAL IV PRN (12:44)
[2019-09-16] MEDS ORDERED: ONDANSETRON 4 MG/2 ML VIAL IV PRN ×2 (12:44→13:07)
[2019-09-16] MEDS ORDERED: propofoL 200 MG/20 ML VIAL IV ONE (12:54)
[2019-09-16] MEDS ORDERED: KETAMINE 500 MG/10 ML VIAL ONE (12:54)
[2019-09-16] MEDS ORDERED: SEVOFLURANE 1 UNIT/15 MINUTE INH ONE (12:54)
[2019-09-16] MEDS ORDERED: LIDOCAINE 2% 5 ML VIAL ONE (12:54)
[2019-09-16] MEDS ORDERED: ACETAMINOPHEN 1,000 MG/100 ML VIAL IV ONE (12:55)
[2019-09-16] MEDS ORDERED: ONDANSETRON 4 MG/2 ML VIAL ONE (12:55)
[2019-09-16] MEDS ORDERED: PHENYLEPHRINE 1 MG/10 ML SYRINGE IV ONE (12:55)
[2019-09-16] MEDS ORDERED: fentaNYL 100 MCG/2 ML VIAL ONE (12:55)
[2019-09-16] MEDS ORDERED: ETOMIDATE 40 MG/20 ML VIAL IV ONE (12:55)
[2019-09-16] MEDS ORDERED: MIDAZOLAM 2 MG/2 ML VIAL ONE (12:55)
[2019-09-16] MEDS ORDERED: ePHEDrine 50 MG/ML VIAL ONE (12:55)
[2019-09-16] MEDS ORDERED: ROCURONIUM 100 MG/10 ML VIAL IV ONE (12:56)
[2019-09-16] MEDS ORDERED: SUCCINYLCHOLINE 200 MG/10 ML VIAL ONE (12:56)
[2019-09-16] MEDS ORDERED: LACTATED RINGERS 1,000 ML IV ONE (12:56)
[2019-09-16] MEDS: HYDROmorphone 2 MG/1 ML VIAL IV PRN ×4 (13:15→13:30)
[2019-09-16] MEDS: DEXTROSE 5% LACTATED RINGERS 1,000 ML IV SCH (15:21)
[2019-09-17] MEDS: DEXTROSE 5% LACTATED RINGERS 1,000 ML IV SCH ×2 (00:02→05:44)
[2019-09-17 06:11] LABS: Calcium 8.8 MG/DL (8.5-10.1)
[2019-09-17 06:25] LABS: Basophils % 0.1 % (0.0-0.8); Eosinophils % 0.1 % (0.00-10.9); Hematocrit 36.4 VOL% (42.0-52.0); Hemoglobin 10.5 GM/DL (14.0-18.0); Immature Granulocytes % 0.6 %; Immature Granulocytes Absolute 0.08 #; Lymphocytes # 1.1 10*3/uL (1.4-4.0); Lymphocytes % 8.3 % (21.2-54.2); Mean Corpuscular HGB Conc 28.8 GM/DL (32-36); Mean Platelet Volume 12.2 FL (9.6-12.0); Monocytes % 7.2 % (1.7-12.7); Neutrophils % 83.7 % (38.7-73.9); Platelet Count 244 T/CUMM (130-400); Red Blood Count 4.79 MC/CUMM (3.8-5.5); Red Cell Distribution Width 18.2 % (9.3-17.3); White Blood Count 13.2 T/CUMM (4-12)
[2019-09-17 07:03] LABS: Hypochromasia Slight; Microcytosis Slight; Platelet Estimate Adequate
[2019-09-17] MEDS: ENOXAPARIN 40 MG/0.4 ML SYRINGE SUBCUT SCH (10:04)
[2019-09-17] MEDS: carvediloL 6.25 MG TABLET PO SCH (10:05)
[2019-09-17] MEDS: PANTOPRAZOLE 40 MG TABLET PO SCH (10:05)
[2019-09-17] MEDS: FLUTICASONE 50 MCG NASAL SPRAY 16 GM BOTTLE BOTH NARES SCH (10:05)
[2019-09-18] MEDS: DEXTROSE 5% LACTATED RINGERS 1,000 ML IV SCH ×4 (02:37→15:29)
[2019-09-18] MEDS: PANTOPRAZOLE 40 MG TABLET PO SCH (08:20)
[2019-09-18] MEDS: FUROSEMIDE 40 MG TABLET PO SCH (08:20)
[2019-09-18] MEDS: carvediloL 6.25 MG TABLET PO SCH (08:20)
[2019-09-18] MEDS: SPIRONOLACTONE 25 MG TABLET PO SCH (08:20)
[2019-09-18] MEDS: ENOXAPARIN 40 MG/0.4 ML SYRINGE SUBCUT SCH (08:20)
[2019-09-18] MEDS: FLUTICASONE 50 MCG NASAL SPRAY 16 GM BOTTLE BOTH NARES SCH (08:21)
[2019-09-18] MEDS: ASPIRIN CHEW 81 MG TABLET PO SCH (20:34)
[2019-09-19] MEDS: FLUTICASONE 50 MCG NASAL SPRAY 16 GM BOTTLE BOTH NARES SCH (08:50)
[2019-09-19] MEDS: FUROSEMIDE 40 MG TABLET PO SCH (08:50)
[2019-09-19] MEDS: carvediloL 6.25 MG TABLET PO SCH (08:50)
[2019-09-19] MEDS: PANTOPRAZOLE 40 MG TABLET PO SCH (08:50)
[2019-09-19] MEDS: SPIRONOLACTONE 25 MG TABLET PO SCH (08:50)
[2019-09-19] MEDS: ENOXAPARIN 40 MG/0.4 ML SYRINGE SUBCUT SCH (08:51)
[2019-09-19] MEDS: DEXTROSE 5% LACTATED RINGERS 1,000 ML IV SCH (11:10)
[2019-09-19] MEDS: ASPIRIN CHEW 81 MG TABLET PO SCH (21:11)
[2019-09-20] MEDS: DEXTROSE 5% LACTATED RINGERS 1,000 ML IV SCH (10:42)
[2019-09-20] MEDS: FUROSEMIDE 40 MG TABLET PO SCH (10:42)
[2019-09-20] MEDS: PANTOPRAZOLE 40 MG TABLET PO SCH (10:43)
[2019-09-20] MEDS: ENOXAPARIN 40 MG/0.4 ML SYRINGE SUBCUT SCH (10:43)
[2019-09-20] MEDS: SPIRONOLACTONE 25 MG TABLET PO SCH (10:43)
[2019-09-20] MEDS: carvediloL 6.25 MG TABLET PO SCH (10:43)
[2019-09-20] MEDS: FLUTICASONE 50 MCG NASAL SPRAY 16 GM BOTTLE BOTH NARES SCH (10:44)
[2019-09-20] MEDS: ASPIRIN CHEW 81 MG TABLET PO SCH (21:37)
[2019-09-21] MEDS: DEXTROSE 5% LACTATED RINGERS 1,000 ML IV SCH (06:52)
[2019-09-21] MEDS: SPIRONOLACTONE 25 MG TABLET PO SCH (08:50)
[2019-09-21] MEDS: carvediloL 6.25 MG TABLET PO SCH (08:50)
[2019-09-21] MEDS: PANTOPRAZOLE 40 MG TABLET PO SCH (08:50)
[2019-09-21] MEDS: ENOXAPARIN 40 MG/0.4 ML SYRINGE SUBCUT SCH (08:50)
[2019-09-21] MEDS: FUROSEMIDE 40 MG TABLET PO SCH (08:50)
[2019-09-21] MEDS: FLUTICASONE 50 MCG NASAL SPRAY 16 GM BOTTLE BOTH NARES SCH (08:51)
[2019-09-21 16:54] VITALS: BP 120/70
== END 2019-09-21 18:20 | disposition home or self-care (01) | DRG 330 ==
LOC: N.OR 05:29 → N.SDSINP 05:30 → N.4E 13:58
PROVIDERS: ADMIT Student in an Organized Health Care Education/Training Program; ATTEND Student in an Organized Health Care Education/Training Program

== ENCOUNTER 2022-04-23 04:47 | Inpatient (IN) ==
[2022-04-12 12:33] LABS: Basophils % 0.5 % (0.0-0.8); Eosinophils # 0.4 10*3/uL (0.0-0.87); Eosinophils % 6.1 % (0.00-10.9); Hemoglobin 14.9 GM/DL (14.0-18.0); Immature Granulocytes % 0.2 %; Immature Granulocytes Absolute 0.01 #; Lymphocytes # 2.1 10*3/uL (1.4-4.0); Lymphocytes % 33.9 % (21.2-54.2); Mean Corpuscular HGB Conc 31.7 GM/DL (32-36); Mean Corpuscular Volume 87.4 FL (87-102); Mean Platelet Volume 11.2 FL (9.6-12.0); Monocytes # 0.7 10*3/uL (0.11-0.8); Monocytes % 10.4 % (1.7-12.7); Neutrophils % 48.9 % (38.7-73.9); Platelet Count 226 T/CUMM (130-400); Red Blood Count 5.38 MC/CUMM (3.8-5.5); Red Cell Distribution Width 14.1 % (9.3-17.3); White Blood Count 6.3 T/CUMM (4-12)
[2022-04-12 12:43] LABS: PT Patient Result 10.9 SECS (10.1-12.1); Partial Thromboplastin Time 28.4 SECS (23.7-32.9)
[2022-04-12 12:44] LABS: Squamous Epithelial Cell,Urine Occasional /HPF (0-10); Urine Appearance Clear (Clear); Urine Color Yellow (Yellow)
[2022-04-12 12:45] LABS: Bilirubin,Urine Negative (Negative); Blood, Urine Negative (Negative); Glucose,Urine (UA) Negative (Negative); Ketones,Urine Trace mg/dL (Negative); Nitrite,Urine Negative (Negative); Protein,Urine Trace mg/dL (Negative); Urine Urobilinogen 0.2 eU/dL (<2.0); Urine pH 7.5 (4.5-8.0)
[2022-04-12 12:58] LABS: Albumin 4.5 G/DL (3.4-5.0); Bilirubin,Total 0.8 MG/DL (0.20-1.00); Calcium 9.5 MG/DL (8.5-10.1); Osmolality,Calculated 274.7 MOS/KG (273-304); Potassium 4.5 MMOL/L (3.5-5.1); Total Protein 7.9 G/DL (6.4-8.2)
[2022-04-23] MEDS ORDERED: ceFAZolin 2,000 MG/50 ML DUPLEX IV ONE (05:48)
[2022-04-23] MEDS ORDERED: VANCOMYCIN 1,000 MG VIAL ONE (05:49)
[2022-04-23] MEDS ORDERED: BUPIVACAINE SPINAL 0.75% 2 ML AMP SPINAL ONE (05:57)
[2022-04-23] MEDS ORDERED: MIDAZOLAM 2 MG/2 ML VIAL ONE ×2 (05:57→07:55)
[2022-04-23] MEDS ORDERED: fentaNYL 100 MCG/2 ML VIAL ONE (05:57)
[2022-04-23] MEDS ORDERED: propofoL 200 MG/20 ML VIAL IV ONE (05:57)
[2022-04-23] MEDS ORDERED: buprenorphine HCL 0.3 MG/ML VIAL ONE (05:58)
[2022-04-23] MEDS ORDERED: GABAPENTIN 400 MG CAPSULE PO ONE (06:16)
[2022-04-23] MEDS ORDERED: FAMOTIDINE 20 MG TABLET PO ONE (06:16)
[2022-04-23] MEDS ORDERED: ACETAMINOPHEN 500 MG TABLET PO ONE (06:16)
[2022-04-23] MEDS ORDERED: BUPIVACAINE MPF 0.5% 30 ML VIAL ONE (06:18)
[2022-04-23] MEDS ORDERED: GABAPENTIN 400 MG CAPSULE ONE (06:18)
[2022-04-23] MEDS ORDERED: DEXAMETHASONE 4 MG/1 ML VIAL ONE (06:18)
[2022-04-23] MEDS ORDERED: ACETAMINOPHEN 500 MG TABLET ONE (06:18)
[2022-04-23] MEDS ORDERED: LIDOCAINE 1% 5 ML VIAL ONE (06:18)
[2022-04-23] MEDS ORDERED: FAMOTIDINE 20 MG TABLET ONE (06:18)
[2022-04-23] MEDS ORDERED: PHENYLEPHRINE 10 MG/1 ML VIAL IV ONE (06:29)
[2022-04-23] MEDS: LACTATED RINGERS 1,000 ML IV SCH ×4 (06:30→18:05)
[2022-04-23] MEDS ORDERED: BACITRACIN OINT 0.9 GM PACK TOP ONE (06:34)
[2022-04-23] MEDS ORDERED: ZALEPLON 5 MG CAPSULE PO PRN (07:21)
[2022-04-23] MEDS ORDERED: diphenhydrAMINE CAP 25 MG CAPSULE PO PRN (07:21)
[2022-04-23] MEDS ORDERED: ONDANSETRON 4 MG/2 ML VIAL IV PRN (07:21)
[2022-04-23] MEDS ORDERED: MORPHINE 2 MG/1 ML SYRINGE IV PRN ×2 (07:21)
[2022-04-23] MEDS: KETOROLAC 15 MG/1 ML VIAL IV SCH ×3 (07:30→20:36)
[2022-04-23] MEDS ORDERED: ePHEDrine 50 MG/ML VIAL ONE (08:07)
[2022-04-23] MEDS ORDERED: SUCCINYLCHOLINE 200 MG/10 ML VIAL ONE (08:56)
[2022-04-23] MEDS ORDERED: ROCURONIUM 50 MG/5 ML VIAL IV ONE (08:56)
[2022-04-23 09:32] LABS: Mucus,Urine Occasional /LPF (Occasional); RBC,Urine 1 /HPF (0-4); Squamous Epithelial Cell,Urine Occasional /HPF (0-10)
[2022-04-23 09:33] LABS: Bilirubin,Urine Negative (Negative); Blood, Urine Negative (Negative); Glucose,Urine (UA) Negative (Negative); Ketones,Urine Negative (Negative); Nitrite,Urine Negative (Negative); Protein,Urine Negative (Negative); Urine Appearance Clear (Clear); Urine Color Yellow (Yellow); Urine Specific Gravity 1.025 (1.001-1.035)
[2022-04-23] MEDS: ceFAZolin 2,000 MG/50 ML DUPLEX IV SCH ×2 (11:05→20:38)
[2022-04-23] MEDS: DOCUSATE SODIUM 100 MG CAPSULE PO SCH ×2 (11:05→20:35)
[2022-04-24] MEDS: LACTATED RINGERS 1,000 ML IV SCH (02:10)
[2022-04-24 05:21] LABS: Basophils % 0.1 % (0.0-0.8); Eosinophils # 0.1 10*3/uL (0.0-0.87); Eosinophils % 0.7 % (0.00-10.9); Hematocrit 37.3 VOL% (42.0-52.0); Hemoglobin 12.1 GM/DL (14.0-18.0); Immature Granulocytes % 0.5 %; Immature Granulocytes Absolute 0.05 #; Lymphocytes # 1.5 10*3/uL (1.4-4.0); Lymphocytes % 14.8 % (21.2-54.2); Mean Corpuscular HGB Conc 32.4 GM/DL (32-36); Mean Corpuscular Volume 87.8 FL (87-102); Mean Platelet Volume 12.2 FL (9.6-12.0); Monocytes # 0.8 10*3/uL (0.11-0.8); Monocytes % 8.2 % (1.7-12.7); Neutrophils % 75.7 % (38.7-73.9); Platelet Count 164 T/CUMM (130-400); Red Blood Count 4.25 MC/CUMM (3.8-5.5); White Blood Count 10.1 T/CUMM (4-12)
[2022-04-24 05:43] LABS: Calcium 8.3 MG/DL (8.5-10.1); Osmolality,Calculated 274.8 MOS/KG (273-304); Potassium 4.4 MMOL/L (3.5-5.1)
[2022-04-24] MEDS: FONDAPARINUX 2.5 MG/0.5 ML SYRINGE SUBCUT SCH (05:45)
[2022-04-24] MEDS: PANTOPRAZOLE 40 MG TABLET PO SCH (08:16)
[2022-04-24] MEDS: DOCUSATE SODIUM 100 MG CAPSULE PO SCH ×2 (08:16→20:33)
[2022-04-24] MEDS: POTASSIUM CHLORIDE 20 MEQ TABLET PO SCH (08:17)
[2022-04-24] MEDS: carvediloL 6.25 MG TABLET PO SCH (08:17)
[2022-04-24] MEDS: FUROSEMIDE 40 MG TABLET PO SCH (08:17)
[2022-04-24] MEDS: SPIRONOLACTONE 25 MG TABLET PO SCH (08:17)
[2022-04-24] MEDS: MAGNESIUM HYDROXIDE SUSP 30 ML UDCUP PO PRN (08:18)
[2022-04-24] MEDS ORDERED: ASPIRIN CHEW 81 MG TABLET PO SCH (21:00)
[2022-04-25] MEDS: FONDAPARINUX 2.5 MG/0.5 ML SYRINGE SUBCUT SCH (05:38)
[2022-04-25 06:22] LABS: Basophils # 0.1 10*3/uL (0.0-0.2); Basophils % 0.5 % (0.0-0.8); Eosinophils # 0.6 10*3/uL (0.0-0.87); Eosinophils % 5.7 % (0.00-10.9); Hematocrit 38.1 VOL% (42.0-52.0); Hemoglobin 12.3 GM/DL (14.0-18.0); Immature Granulocytes % 1.2 %; Immature Granulocytes Absolute 0.14 #; Lymphocytes # 2.6 10*3/uL (1.4-4.0); Lymphocytes % 22.7 % (21.2-54.2); Mean Corpuscular HGB Conc 32.3 GM/DL (32-36); Mean Corpuscular Volume 87.8 FL (87-102); Mean Platelet Volume 11.8 FL (9.6-12.0); Monocytes # 1.3 10*3/uL (0.11-0.8); Monocytes % 11.6 % (1.7-12.7); Neutrophils % 58.3 % (38.7-73.9); Platelet Count 181 T/CUMM (130-400); Red Blood Count 4.34 MC/CUMM (3.8-5.5); Red Cell Distribution Width 14.2 % (9.3-17.3); White Blood Count 11.3 T/CUMM (4-12)
[2022-04-25 07:04] VITALS: BP 134/67
[2022-04-25] MEDS: DOCUSATE SODIUM 100 MG CAPSULE PO SCH (08:22)
[2022-04-25] MEDS: FUROSEMIDE 40 MG TABLET PO SCH (08:22)
[2022-04-25] MEDS: POTASSIUM CHLORIDE 20 MEQ TABLET PO SCH (08:22)
[2022-04-25] MEDS: PANTOPRAZOLE 40 MG TABLET PO SCH (08:22)
[2022-04-25] MEDS: SPIRONOLACTONE 25 MG TABLET PO SCH (08:22)
[2022-04-25] MEDS: carvediloL 6.25 MG TABLET PO SCH (08:22)
[2022-04-25] MEDS: MAGNESIUM HYDROXIDE SUSP 30 ML UDCUP PO PRN (08:23)
[2022-04-26] MEDS ORDERED: ROSUVASTATIN 10 MG TABLET PO SCH (09:00)
== END 2022-04-25 11:55 | disposition home health service (06) | DRG 470 ==
LOC: N.SDSINP 04:47 → N.3E 10:27
PROVIDERS: ADMIT Orthopaedic Surgery; ATTEND Orthopaedic Surgery